=== PATIENT | female | born 1965 | race Caucasian/White ===

== ENCOUNTER 2022-09-18 15:06 | Emergency (ER) | payer OTHER, MEDICAID, SELFPAY ==
[2022-09-18 15:08] VITALS: BP 180/66; PULSE 99; RESP 18; TEMP 36.6; O2SAT 100; BMI 20.3
[2022-09-18 15:35] LABS: Absolute Lymphocyte Count 3.33 X10^3/uL (0.83-4.51); Absolute Neutrophil Count 3.9 X10^3/uL (2.0-7.7); Basophil# 0.03 X10^3/uL; Basophil% 0.4 % (0-1); Eosinophil# 0.24 X10^3/uL; Eosinophils% 2.9 % (0-5); Hematocrit 41.8 % (37-47); Hemoglobin 13.1 g/dL (12.0-15.0); Lymphocyte # 3.33 X10^3/ul (0.83-4.51); Lymphocyte % 40.8 % (19-41); Mean Corp Hgb Conc 31.3 g/dL (32-36); Mean Corpuscular Hgb 29.4 pg (27.0-32.0); Mean Corpuscular Volume 93.9 fL (81-99); Mean Platelet Vol. 10.5 fl (6.2-12.0); Monocyte# 0.67 X10^3/uL; Monocyte% 8.2 % (0-10); NRBC Flagged by Analyzer 0 % (0-5); Neutrophil # 3.86 X10^3/uL (2.7-7.7); Neutrophil % 47.3 % (47-70); Platelet Count 260 K/mm3 (150-450); RBC Distribution Width SD 48.2 fl (35.1-43.9); Red Blood Count 4.45 M/mm3 (4.2-5.4); White Blood Count 8.2 K/mm3 (4.4-11.0)
[2022-09-18 15:44] LABS: Anion Gap 4 (5-15); BUN 16 mg/dL (7-18); BUN/Creat Ratio 19.9 RATIO (10-20); Calcium,Total 8.8 mg/dL (8.5-10.1); Chloride 111 mmol/L (98-107); EST Glomerular Filtration Rate 78 mL/min (>60); Est Glom Filt Rate - Afr Amer 94 mL/min (>60); Estimated Creatinine Clearance 63.89 ml/min; Glucose 135 mg/dL (74-106); Potassium 3.6 mmol/L (3.5-5.1); Sodium Level 143 mmol/L (136-145)
[2022-09-18 15:57] VITALS: BP 164/78; PULSE 79; RESP 16; RESP 18; TEMP 36.7; O2SAT 100
--- NOTE | 2022-09-18 15:57 | RAD_ITS ---
INDICATION: SOB EXAMINATION/TECHNIQUE: X-RAY - XR Chest 1 View COMPARISON: None. FINDINGS: LINES/DEVICES: None. LUNGS: No consolidation, edema or effusion. No pneumothorax. MEDIASTINUM AND CARDIOVASCULAR STRUCTURES: Cardiac silhouette not enlarged. Central airways and mediastinal contour are unremarkable. BONES AND SOFT TISSUES: Unremarkable. RAD/Chest 1 View (Portable) IMPRESSION: No radiographic evidence of acute cardiopulmonary disease. Electronically Signed: Deanna Hansen MD at 16:11 EST Reading Location ID and State: [id number] / Tel , Service support ,
[2022-09-18] MEDS: Ipratropium/Albuterol Sulfate 3 ML AMPUL.NEB INHALATION (16:43)
[2022-09-18 16:45] VITALS: PULSE 73; RESP 18
[2022-09-18] MEDS: MethylPREDNISolone 125 MG/2 ML Vial IV (16:51)
[2022-09-18 16:52] VITALS: BP 164/73; PULSE 84; RESP 18; O2SAT 99
[2022-09-18 18:32] VITALS: BP 140/63; PULSE 83; RESP 18; O2SAT 98
--- NOTE | 2022-09-18 18:32 | EDS_ITS ---
HPI History of Present Illness Chief Complaint: Shortness of Breath Narrative Narrative: Patient presents with shortness of breath that has been gradually getting worse over the past 2 to 3 weeks, she also has productive sputum which is yellow. She has no fever or chills. She has no history of COPD but she smokes. No back pain or tearing sensation. She is denying any current chest pain. [facility] Medical History HTN (hypertension) Home Medications clonidine HCl 0.1 mg tablet 0.1 mg PO BID PRN PRN Blood Pressure 05/12/15 [History Last Taken Unknown] lisinopril 20 mg tablet 20 mg PO DAILY 05/12/15 [History Last Taken 11/19/16 05:00] fluticasone propionate 50 mcg/actuation nasal spray,suspension 2 spray DAILY 05/06/16 [History Last Taken 06/27/16] carbidopa 25 mg-levodopa 100 mg disintegrating tablet 1 ea PO QHS 11/11/16 [History Last Taken Unknown] gabapentin 600 mg tablet 600 mg PO BIDCM 04/29/17 [History Last Taken Unknown] doxycycline hyclate 100 mg capsule 100 mg PO BID #14 caps 09/18/22 [Rx Last Taken Unknown] prednisone 20 mg tablet 40 mg PO DAILY #10 tabs 09/18/22 [Rx Last Taken Unknown] Allergy/AdvReac Type Severity Reaction Status Date / Time Penicillins Allergy Unknown Verified 09/18/22 15:07 aspirin AdvReac Upset Verified 09/18/22 15:07 Stomach Surgical History H/O: hysterectomy S/P AAA repair Social History Smoking Status: Current every day smoker tobacco type: cigarettes ROS ROS ED ROS Narrative Past medical history: Reviewed Medications: Reviewed Social history: Smoker, trying to quit Review of systems: All systems negative except as indicated General: No fever Eyes: No visual changes ENT: No upper airway congestion, normal voice Neck: No neck pain Cardiovascular: No chest pain Respiratory: Productive cough which is yellow with shortness of breath especially with exertion Gastrointestinal: No abdominal pain, nausea vomiting or diarrhea Genitourinary: No dysuria Musculoskeletal: Denies myalgias no difficulty with ambulation Skin: No rash Neurological: No memory loss, confusion or any focal weakness Psych: No recent behavioral changes Hematologic: No easy bleeding or easy bruising EXAM Physical Exam Narrative Exam Narrative: Physical exam General: Thin appearing, in she does not appear in significant respiratory distress Head: Normocephalic, Atraumatic Eyes: Conjunctiva not pale ENT: Moist mucous membranes Neck: Supple, Nontender, No lymphadenopathy Cardiovascular: Regular rate, Regular rhythm Respiratory: No distress speaks in full sentences, she does have bilateral end expiratory wheezing and coarse bronchial breath sounds Abdomen: Soft, Nontender, Nondistended Back: Nontender, Normal Inspection. Negative for: CVA tenderness Extremities: Nontender, No edema Skin: Normal color, No rash Neurological: Alert, Normal Strength, Normal Sensation Psychological: Normal affect Const Vital Signs: 09/18/22 15:08 09/18/22 15:57 09/18/22 15:57 Temperature 97.8 F 98.1 F Temperature Source Temporal Oral Pulse Rate 99 79 Respiratory Rate 18 16 Respiratory Effort Respiratory Depth Respiratory Pattern Blood Pressure 180/66 H 164/78 H Blood Pressure Mean 104 106 Pulse Ox 100 100 100 Oxygen Delivery Method Room Air Room Air Room Air 09/18/22 15:57 09/18/22 15:57 09/18/22 16:45 Temperature Temperature Source Pulse Rate 73 Respiratory Rate 18 18 Respiratory Effort Short of Breath Respiratory Depth Normal Respiratory Pattern Normal Normal Blood Pressure Blood Pressure Mean Pulse Ox 100 Oxygen Delivery Method Room Air Room Air 09/18/22 16:52 Temperature Temperature Source Pulse Rate 84 Respiratory Rate 18 Respiratory Effort Respiratory Depth Respiratory Pattern Blood Pressure 164/73 H Blood Pressure Mean 103 Pulse Ox 99 Oxygen Delivery Method Room Air [facility] Lab Data Labs: Laboratory Results - last 24 hr 09/18/22 09/18/22 15:23 15:23 WBC 8.2 RBC 4.45 Hgb 13.1 Hct 41.8 MCV 93.9 MCH 29.4 MCHC 31.3 L RDW Std Deviation 48.2 H RDW Coeff of Jacqueline 14.0 Plt Count 260 MPV 10.5 Immature Gran % (Auto) 0.400 Neut % (Auto) 47.3 Lymph % (Auto) 40.8 [place] % (Auto) 8.2 Eos % (Auto) 2.9 Baso % (Auto) 0.4 Absolute Neuts (auto) 3.9 Absolute Lymphs (auto) 3.33 Nucleated RBC % 0 Sodium 143 Potassium 3.6 Chloride 111 H Carbon Dioxide 28.0 Anion Gap 4 L BUN 16 Creatinine 0.80 Estim Creat Clear Calc 63.89 Est GFR (MDRD) Af Amer 94 Est GFR (MDRD) Non-Af 78 BUN/Creatinine Ratio 19.9 Glucose 135 H Calcium 8.8 Radiography Diagnostic Testing: Clinical Impression(s) from Imaging Studies Chest X-Ray 09/18/22 15:57 IMPRESSION: No radiographic evidence of acute cardiopulmonary disease. Electronically Signed: Deanna Hansen MD at 16:11 EST Reading Location ID and State: [id number] / Tel , Service support , Chest x-ray read by me and radiologist as normal Treatment and Re-Evaluation Narrative: Patient was given nebulizer with significant immediate improvement of her symptoms. I warned her that she may have early COPD, I told her to quit smoking. I will place her on steroids and antibiotics since she does have productive sputum. I will give her an inhaler for home Discharge Plan Triage Chief Complaint: Shortness of Breath ED Provider: Milad Jung Dx/Rx/DC Orders Clinical Impression: Acute dyspnea, Bronchitis, Wheezing Instructions: ED Bronchitis with Wheezing (Adult) Prescriptions: New prednisone 20 mg tablet 40 mg PO DAILY Qty: 10 0RF doxycycline hyclate 100 mg capsule 100 mg PO BID Qty: 14 0RF No Action clonidine HCl 0.1 MG tablet 0.1 mg PO BID PRN PRN (Reason: Blood Pressure) lisinopril 20 MG tablet 20 mg PO DAILY Label Comments: BP fluticasone propionate 1 SPRAY spray,suspension 2 spray NASAL DAILY Label Comments: BREATHING/SINUS CONGESTION carbidopa-levodopa 1 EACH tablet,disintegrating 1 ea PO QHS gabapentin 600 MG tablet 600 mg PO BIDCM Primary Care Provider: Toy Suarez Referrals: Toy Suarez DO [Primary Care Provider] - 3-5 Days Disposition Disposition: Home, Self Care
[2022-09-18] MEDS: Albuterol Sulfate 8 gm Inhaler (60 puffs) 2 PUFF INHALATION (18:40)
== END 2022-09-18 18:43 | disposition home or self-care (01) ==
PROVIDERS: Emergency Provider Emergency Medicine; PCP Preventive Medicine Occupational Medicine; Visit Provider Emergency Medicine
DX: J40 Bronchitis, not specified as acute or chronic (principal); F17.210 Nicotine dependence, cigarettes, uncomplicated; I10 Essential (primary) hypertension; R06.2 Wheezing; Z79.52 Long term (current) use of systemic steroids
CPT/HCPCS: 71045; 80048; 85025; 87811; 93005; 94640; 94760; 96374; 99283